=== PATIENT | female | born 1970 | race Hispanic/Latino ===

== ENCOUNTER → 2017-03-30 | Outpatient (CLI) | payer OTHER ==
--- NOTE | 2017-04-09 10:25 | Diagnostic Imaging Report ---
#[id number] - MGSCRNBI #BILATERAL DIGITAL SCREENING MAMMOGRAM WITH CAD: 03/30/2017 CLINICAL: Routine screening. Comparison is made to exam dated: 01/13/2016 mammogram - [facility]. Current study contains 4 films. The tissue of both breasts is heterogeneously dense. This may lower the sensitivity of mammography. Current study was also evaluated with a Computer Aided Detection (CAD) system. There is a benign intramammary node in the right breast. There also are benign calcifications in the left breast. No significant masses, calcifications, or other findings are seen in either breast. There has been no significant interval change. IMPRESSION: BENIGN There is no mammographic evidence of malignancy. A 1 year screening mammogram is recommended. The patient will be notified by letter of the results. Lucho martinez/megan:04/06/2017 12:23:03 Cook [place]chilada: Sharon CELESTE(Alma Delia)(M), [facility] letter sent: Compared to Prior B9 Mammogram BI-RADS: 2 Benign
== END ==
LOC: MAMMO 08:47
PROVIDERS: ATTEND Internal Medicine
DX: Z12.31 Encounter for screening mammogram for malignant neoplasm of breast (principal)

== ENCOUNTER 2017-06-01 16:33 | Emergency (ER) | payer OTHER ==
[~2017-06-01] VITALS: Ht 167.6 cm; Wt 81.6 kg
--- OUTSIDE RECORDS SUMMARY | 2017-06-01 16:35 | XMS REPORT ---
Author Author [facility] Address Unknown Phone Unavailable Care Team Providers Care Windows Software Engineer Name Role Phone AIDEN THIBODEAUX Unavailable Unavailable Problems This patient has no known problems. Allergies, Adverse Reactions, Alerts This patient has no known allergies or adverse reactions. Medications This patient has no known medications. Results Test Description Test Time Test Comments Text Results Atomic Results Result Comments MAMMOGRAM DIGITAL SCR BI [place] [address] Patient Name: ROSE MARIE ROME MR #: [id number] : 1970 Age/Sex: 46/F Req #: [id number] Adm Physician: Ordered by: AIDEN THIBODEAUX MD Report #: [id number] Location: MAMMO Room/Bed: Procedure: [id number] MG/MAMMOGRAM DIGITAL SCR BI Exam Date: 03/30/17 Exam Time: 0906 REPORT STATUS: Signed #[id number] - MGSCRNBI #BILATERAL DIGITAL SCREENING MAMMOGRAM WITH CAD: 03/30/2017 CLINICAL: Routine screening. Comparison is made to exam dated: 2015 mammogram - [facility]. Current study contains 4 films. The tissue of both breasts is heterogeneously dense. This may lower the sensitivity of mammography. Current study was also evaluated with a Computer Aided Detection (CAD) system. There is a benign intramammary node in the right breast. There also are benign calcifications in the left breast. No significant masses, calcifications, or other findings are seen in either breast. There has been no significant interval change. IMPRESSION: BENIGN There is no mammographic evidence of malignancy. A 1 year screening mammogram is recommended. The patient will be notified by letter of the results. Braden martinez/megan:04/06/2017 12:23:03 Skiff Operator: Sharon CELESTE(Alma Delia )(M), [facility] letter sent: Compared to Prior B9 Mammogram BI-RADS: 2 Benign Dictated By: BRADEN BERNAL DO 1223 Transcribed By: MEGAN on 1223 COPY TO: AIDEN THIBODEAUX MD
[2017-06-01 17:50] LABS: BASOPHILS # (AUTO) 0.1 (0.0-0.1); BASOPHILS % 0.6 % (0.0-1.0); EOSINOPHILS # (AUTO) 0.1 (0.0-0.4); EOSINOPHILS % 1.1 % (0.0-6.0); HEMATOCRIT 40.8 % (34.2-44.1); HEMOGLOBIN 13.8 g/dL (12.0-16.0); LYMPHOCYTES # (AUTO) 1.8 (1.0-3.2); LYMPHOCYTES % 20.2 % (18.0-39.1); MEAN CORPUSCULAR HEMOGLOBIN 28.6 pg (28-32); MEAN CORPUSCULAR HGB CONC 33.8 g/dL (31-35); MEAN CORPUSCULAR VOLUME 84.6 fL (81-99); MONOCYTES # (AUTO) 0.7 (0.2-0.8); MONOCYTES % 7.5 % (4.4-11.3); NEUTROPHILS # (AUTO) 6.1 (2.1-6.9); NEUTROPHILS % 69.5 % (38.7-80.0); PLATELET COUNT 268 x10e3/uL (140-360); RED BLOOD COUNT 4.82 x10e6/uL (3.6-5.1); RED CELL DISTRIBUTION WIDTH 12.7 % (11.7-14.4)
[2017-06-01 18:08] LABS: ALANINE AMINOTRANSFERASE 40 IU/L (0-55); ALBUMIN 3.8 g/dL (3.5-5.0); ALBUMIN/GLOBULIN RATIO 0.8 (0.8-2.0); ALKALINE PHOSPHATASE 93 IU/L (40-150); AMYLASE 64 U/L (25-125); ANION GAP 11.9 mmol/L (8-16); BLOOD UREA NITROGEN 12 mg/dL (7-26); BUN/CREATININE RATIO 15 (6-25); CALCIUM 9.4 mg/dL (8.4-10.2); CARBON DIOXIDE 26 mmol/L (22-29); CHLORIDE 102 mmol/L (98-107); CREATININE, SERUM 0.79 mg/dL (0.57-1.11); EST GLOMERULAR FILTRATION RATE > 60 ML/MIN (60-); GLUCOSE 104 mg/dL (74-118); LIPASE 24 U/L (8-78); POTASSIUM 3.9 mmol/L (3.5-5.1); SODIUM 136 mmol/L (136-145)
[2017-06-01 18:11] LABS: CLARITY,URINE CLEAR (CLEAR); COLOR,URINE STRAW (YELLOW); LEUKOCYTE ESTERASE ,URINE NEGATIVE (NEGATIVE)
[2017-06-01 18:12] LABS: BILIRUBIN,URINE NEGATIVE (NEGATIVE); KETONES,URINE NEGATIVE (NEGATIVE); NITRITE,URINE NEGATIVE (NEGATIVE); PREGNANCY TEST, URINE NEGATIVE (NEGATIVE); PROTEIN,URINE DIPSTICK NEGATIVE (NEGATIVE); URINE UROBILINOGEN 0.2 mg/dL (0.2 - 1)
[2017-06-01 18:23] LABS: EPITHELIAL CELLS,URINE MODERATE /LPF; RBC,URINE 0-5 /HPF (0-5); WBC,URINE (MAN) 0-5 /HPF (0-5)
--- NOTE | 2017-06-01 22:32 | Diagnostic Imaging Report ---
EXAM: CT Abdomen and Pelvis WITH contrast INDICATION: Acute appendicitis. COMPARISON: None. TECHNIQUE: Abdomen and pelvis were scanned utilizing a multidetector helical scanner from the lung base to the pubic symphysis after administration of IV contrast. Coronal and sagittal reformations were obtained. Routine protocol was performed. Scan was performed when during portal venous phase. IV CONTRAST: 100 mL of Isovue-300 ORAL CONTRAST: None RADIATION DOSE: Total DLP: 506.61 mGy*cm Estimated effective dose: (DLP x 0.015 x size factor) mSv COMPLICATIONS: None FINDINGS: LINES and TUBES: None. LOWER THORAX: Unremarkable HEPATOBILIARY: No focal hepatic lesions. No biliary ductal dilation. GALLBLADDER: No radio-opaque stones or sludge. No wall thickening. SPLEEN: No splenomegaly. PANCREAS: No focal masses or ductal dilatation. ADRENALS: No adrenal nodules KIDNEYS/URETERS: Kidneys enhance symmetrically. No hydronephrosis. No cystic or solid mass lesions. No stones. GI TRACT: No abnormal distention, wall thickening, or evidence of bowel obstruction. Appendix is normal. PELVIC ORGANS/BLADDER: Unremarkable. LYMPH NODES: No lymphadenopathy. VESSELS: Unremarkable. PERITONEUM / RETROPERITONEUM: No free air or fluid. BONES: Unremarkable. SOFT TISSUES: Unremarkable. IMPRESSION: 1. No evidence of acute intra-abdominal abnormality. No evidence of acute appendicitis. 2. No tomographic findings to explain patient's abdominal pain. Signed by: Dr. Steven Weaver M.D. on 06/01/2017 10:28 PM
[2017-06-01 22:39] VITALS: BP 167/83
[2017-06-02] MEDS ORDERED: SODIUM CHLORIDE 0.9% 50ML 50 ML ONE (06:53)
[2017-06-02] MEDS ORDERED: IOPAMIDOL 370 MG/ML 200 ML INFUS..BTL INJ ONE (06:53)
== END 2017-06-01 22:43 | disposition home or self-care (01) ==
LOC: ER 16:33
DX: R10.31 Right lower quadrant pain (principal); R10.32 Left lower quadrant pain; R11.0 Nausea; I10 Essential (primary) hypertension
CPT/HCPCS: 36415; 74177; 80053; 81001; 81025; 82150; 83690; 85025; 99284

== ENCOUNTER 2017-07-21 02:45 | Emergency (ER) | payer OTHER ==
[~2017-07-21] VITALS: Ht 167.6 cm; Wt 81.6 kg
== END 2017-07-21 03:05 | disposition home or self-care (01) ==
LOC: ER 02:45
DX: S46.012A Strain of muscle(s) and tendon(s) of the rotator cuff of left shoulder, initial encounter (principal); S46.812A Strain of other muscles, fascia and tendons at shoulder and upper arm level, left arm, initial encounter; I10 Essential (primary) hypertension
CPT/HCPCS: 93005; 99282

== ENCOUNTER → 2017-11-30 | Day surgery (SDC) | payer OTHER ==
[2017-11-23 11:15] LABS: BASOPHILS # (AUTO) 0.1 (0.0-0.1); EOSINOPHILS # (AUTO) 0.1 (0.0-0.4); EOSINOPHILS % 1.6 % (0.0-6.0); HEMOGLOBIN 14.6 g/dL (12.0-16.0); LYMPHOCYTES # (AUTO) 2.2 (1.0-3.2); LYMPHOCYTES % 31.2 % (18.0-39.1); MEAN CORPUSCULAR HEMOGLOBIN 28.7 pg (28-32); MEAN CORPUSCULAR HGB CONC 32.4 g/dL (31-35); MEAN CORPUSCULAR VOLUME 88.4 fL (81-99); MONOCYTES # (AUTO) 0.7 (0.2-0.8); NEUTROPHILS # (AUTO) 3.9 (2.1-6.9); NEUTROPHILS % 56.1 % (38.7-80.0); PLATELET COUNT 280 x10e3/uL (140-360); RED BLOOD COUNT 5.09 x10e6/uL (3.6-5.1); RED CELL DISTRIBUTION WIDTH 12.4 % (11.7-14.4)
[2017-11-23 11:22] LABS: BILIRUBIN,URINE NEGATIVE (NEGATIVE); CLARITY,URINE CLEAR (CLEAR); COLOR,URINE COLORLESS (YELLOW); KETONES,URINE NEGATIVE (NEGATIVE); LEUKOCYTE ESTERASE ,URINE NEGATIVE (NEGATIVE); NITRITE,URINE NEGATIVE (NEGATIVE); PROTEIN,URINE DIPSTICK NEGATIVE (NEGATIVE); URINE UROBILINOGEN 0.2 mg/dL (0.2 - 1)
[2017-11-23 11:30] LABS: ALANINE AMINOTRANSFERASE 28 IU/L (0-55); ALBUMIN 4.5 g/dL (3.5-5.0); ALBUMIN/GLOBULIN RATIO 1.2 (0.8-2.0); ALKALINE PHOSPHATASE 102 IU/L (40-150); ANION GAP 16.1 mmol/L (8-16); BLOOD UREA NITROGEN 12 mg/dL (7-26); BUN/CREATININE RATIO 15 (6-25); CARBON DIOXIDE 26 mmol/L (22-29); CHLORIDE 106 mmol/L (98-107); CREATININE, SERUM 0.81 mg/dL (0.57-1.11); EST GLOMERULAR FILTRATION RATE > 60 ML/MIN (60-); GLUCOSE 96 mg/dL (74-118); POTASSIUM 5.1 mmol/L (3.5-5.1); SODIUM 143 mmol/L (136-145)
[~2017-11-30] MED LIST: AMLODIPINE BESYL5 MG PO; BESYLATE; BUPIVACAINE 0.25%/EPI 30ML SDV INJ ONE; FENTANYL CITRATE/PF 100MCG/2 ML INJ ONE; GLYCOPYRROLATE INJ 1MG/ 5 ML SYR ONE; HYDROCODONE/APAP 7.5MG-325MG 1 EA TAB ONE; KETOROLAC TROMETHAMINE 30 MG/ML VIAL ONE; LIDOCAINE HCL 2% LOCAL INJ 5 ML SDV VIAL INJ ONE; METOCLOPRAMIDE HCL 10 MG/2ML VIAL ONE; MIDAZOLAM HCL 2 MG/2 ML VIAL ONE; NEOSTIGMINE 5 MG/5ML SYR ONE; ONDANSETRON HCL INJ 2 MG/ML VIAL ONE; PHENYLEPHRINE HCL 1% 10 MG/ML VIAL ONE; PROPOFOL IV EMULSION 10 MG/ML 20 ML VIAL ONE; ROCURONIUM BROMIDE 10 MG/ML 5ML VIAL ONE; SEVOFLURANE INHAL SOLN 250 ML PEN BTL ONE
--- NOTE | 2017-11-30 10:10 | Operative Report ---
DATE OF PROCEDURE: November 30, 2017 PREOPERATIVE DIAGNOSIS: Cholecystitis and cholelithiasis. POSTOPERATIVE DIAGNOSIS: Cholecystitis and cholelithiasis. OPERATION PERFORMED: Laparoscopic cholecystectomy. ANESTHESIA: General. COMPLICATIONS: None. ESTIMATED BLOOD LOSS: Minimal. DESCRIPTION OF PROCEDURE: With the patient lying in bed in the supine position, under good general endotracheal anesthesia, the abdomen was prepped with Betadine solution and draped in the usual manner. A Veress needle was introduced into the umbilicus, and pneumoperitoneum was established without any difficulty. An 11-mm trocar was placed into the umbilicus, and a 10-mm video laparoscope was placed into the intraabdominal cavity. Under direct vision, three 5-mm trocars were placed in the right subcostal region. Video laparoscopy then revealed the patient to have some adhesions to the lower half of the gallbladder. The rest of the abdominal exploration was otherwise within normal limits. The adhesions to the gallbladder were then slowly and carefully taken down. Peritoneum overlying the neck of the gallbladder was then opened, and the cystic duct was identified. The cystic duct was followed to its junction with the common duct. Cystic duct was then circumferentially dissected away from the common duct, doubly clipped and divided. Cystic artery was similarly doubly clipped and divided. Gallbladder was then slowly and carefully taken off the liver bed using the cautery scissors, and perfect hemostasis was ascertained. The gallbladder was then grasped through the umbilical port and removed without any difficulty. Video laparoscopy was then again carried out. The liver bed was found to be perfectly dry. All of the excess fluid was aspirated. The pneumoperitoneum was evacuated, and all the trocars were removed under direct vision. The midline fascia at the umbilicus was then closed with a [id number]-jq-moyxs of #0 Vicryl. All layers were infiltrated on the way out with a solution of 1/4 percent Marcaine. Subcutaneous tissue was approximated with 3-0 Vicryl, and the skin was closed with subcuticular 5-0 Vicryl. Benzoin, Steri-Strips and Band-Aids were applied. The sponge, lap and needle count was correct. The patient tolerated the procedure well and returned to the recovery room in stable condition. Job#: [id number]
[2017-11-30 11:00] VITALS: BP 123/74
== END | disposition home or self-care (01) ==
LOC: OR 05:45
PROVIDERS: ATTEND Surgery
DX: K80.10 Calculus of gallbladder with chronic cholecystitis without obstruction (principal); K82.8 Other specified diseases of gallbladder; I10 Essential (primary) hypertension; M54.2 Cervicalgia; M54.9 Dorsalgia, unspecified; M26.609 Unspecified temporomandibular joint disorder, unspecified side; I83.90 Asymptomatic varicose veins of unspecified lower extremity; K21.9 Gastro-esophageal reflux disease without esophagitis; Z88.1 Allergy status to other antibiotic agents; Z88.8 Allergy status to other drugs, medicaments and biological substances; Z01.810 Encounter for preprocedural cardiovascular examination; Z01.812 Encounter for preprocedural laboratory examination
CPT/HCPCS: 36415; 47562; 80053; 81003; 81025; 85025; 88304; 93005; C1766; J1885; J2001; J2250; J2370; J2405; J2704; J2765; J3490

== ENCOUNTER 2018-07-11 19:26 | Observation (INO) | payer OTHER ==
[~2018-07-11] VITALS: Ht 153.7 cm; Wt 31.8 kg
[~2018-07-11 19:26] MED LIST changes: -BUPIVACAINE 0.25%/EPI 30ML SDV INJ ONE; -FENTANYL CITRATE/PF 100MCG/2 ML INJ ONE; -GLYCOPYRROLATE INJ 1MG/ 5 ML SYR ONE; -HYDROCODONE/APAP 7.5MG-325MG 1 EA TAB ONE; -KETOROLAC TROMETHAMINE 30 MG/ML VIAL ONE; -LIDOCAINE HCL 2% LOCAL INJ 5 ML SDV VIAL INJ ONE; -METOCLOPRAMIDE HCL 10 MG/2ML VIAL ONE; -MIDAZOLAM HCL 2 MG/2 ML VIAL ONE; -NEOSTIGMINE 5 MG/5ML SYR ONE; -ONDANSETRON HCL INJ 2 MG/ML VIAL ONE; -PHENYLEPHRINE HCL 1% 10 MG/ML VIAL ONE; -PROPOFOL IV EMULSION 10 MG/ML 20 ML VIAL ONE; -ROCURONIUM BROMIDE 10 MG/ML 5ML VIAL ONE; -SEVOFLURANE INHAL SOLN 250 ML PEN BTL ONE
[2018-07-11 20:00] VITALS: BP 138/78
--- NOTE | 2018-07-11 20:26 | NUR ---
SPOKE TO DR. CANTU AT THIS TIME. NEW ORDERS RCV.
[2018-07-11] MEDS ORDERED: HYDRALAZINE HCL 20 MG/ML VIAL IV PRN (20:30)
[2018-07-11] MEDS ORDERED: ONDANSETRON HCL INJ 2MG/ML 2ML 2 MG/ML VIAL IV PRN (20:30)
[2018-07-11] MEDS ORDERED: HYDROCODONE/APAP 5MG-325MG TAB PO PRN (20:30)
[2018-07-11] MEDS ORDERED: MORPHINE SULFATE INJ 4 MG/ML INJ 1ML IV PRN (20:30)
[2018-07-11] MEDS ORDERED: ACETAMINOPHEN 325 MG TAB PO PRN (20:30)
[2018-07-11] MEDS: SODIUM CHLORIDE 0.9% 1000ML 1,000 ML IV SCH (21:35)
[2018-07-12] VITALS (8 sets, daily range): BP systolic 111–132; BP diastolic 65–75
[2018-07-12 02:35] LABS: BASOPHILS % 0.1 % (0.0-1.0); EOSINOPHILS # (AUTO) 0.1 (0.0-0.4); EOSINOPHILS % 0.7 % (0.0-6.0); HEMOGLOBIN 13.3 g/dL (12.0-16.0); LYMPHOCYTES # (AUTO) 0.9 (1.0-3.2); LYMPHOCYTES % 11.8 % (18.0-39.1); MEAN CORPUSCULAR HGB CONC 34.1 g/dL (31-35); MONOCYTES # (AUTO) 0.7 (0.2-0.8); NEUTROPHILS # (AUTO) 5.6 (2.1-6.9); NEUTROPHILS % 78.1 % (38.7-80.0); PLATELET COUNT 216 x10e3/uL (140-360); RED BLOOD COUNT 4.59 x10e6/uL (3.6-5.1); RED CELL DISTRIBUTION WIDTH 13.3 % (11.7-14.4)
[2018-07-12 02:59] LABS: ALANINE AMINOTRANSFERASE 261 IU/L (0-55); ALBUMIN 3.4 g/dL (3.5-5.0); ALBUMIN/GLOBULIN RATIO 0.9 (0.8-2.0); ALKALINE PHOSPHATASE 293 IU/L (40-150); ANION GAP 10.5 mmol/L (8-16); BLOOD UREA NITROGEN 6 mg/dL (7-26); BUN/CREATININE RATIO 9 (6-25); CALCIUM 8.2 mg/dL (8.4-10.2); CARBON DIOXIDE 23 mmol/L (22-29); CHLORIDE 106 mmol/L (98-107); CREATININE, SERUM 0.66 mg/dL (0.57-1.11); EST GLOMERULAR FILTRATION RATE > 60 ML/MIN (60-); GLUCOSE 99 mg/dL (74-118); LIPASE 17 U/L (8-78); POTASSIUM 3.5 mmol/L (3.5-5.1); SODIUM 136 mmol/L (136-145)
--- NOTE | 2018-07-12 07:00 | NUR ---
BEDSIDE ROUNDS COMPLETE NO DISTRESS NOTED, UPDATED ON POC VOICED UNDERSTANDING, DENIES PAIN AT THIS TIME, IVF INFUSING TO R AC 18G NO SS OF INFILTRATION NOTED, NO OTHER CO VOICED CALL LIGHT IN REACH WILL CONTINUE OT MONITOR
[2018-07-12] MEDS: AMLODIPINE BESYLATE 5 MG TAB PO SCH (08:10)
[2018-07-12] MEDS: SODIUM CHLORIDE 0.9% 1000ML 1,000 ML IV SCH ×2 (08:10→20:05)
[2018-07-12] MEDS ORDERED: METOCLOPRAMIDE HCL 10 MG/2ML VIAL ONE (09:08)
[2018-07-12] MEDS ORDERED: METOCLOPRAMIDE HCL 10 MG/2ML VIAL IV ONE (10:00)
[2018-07-12] MEDS ORDERED: PROPOFOL IV EMULSION 10 MG/ML 50 ML VIAL ONE (14:40)
[2018-07-12] MEDS ORDERED: FENTANYL CITRATE/PF 100MCG/2 ML INJ ONE (14:43)
[2018-07-12] MEDS ORDERED: MIDAZOLAM HCL 2 MG/2 ML VIAL ONE (14:43)
--- NOTE | 2018-07-12 14:52 | Diagnostic Imaging Report ---
EXAMINATION: Right upper quadrant ultrasound CLINICAL INDICATION: Abdominal pain COMPARISON: None DISCUSSION: Transverse and longitudinal images of the right upper quadrant were obtained. The liver is normal in size measuring 12.7centimeters in length in the right midclavicular line and shows normal echogenicity. No focal masses are seen in the liver. There is no intrahepatic biliary dilatation. The common bile duct is normal in caliber and measures 0.6 cm. The main portal vein is normal in caliber and measures 1 cm with normal hepatopetal flow. Cholecystectomy. The visualized portions of the pancreatic body are unremarkable. The right kidney measures 10.2 centimeters in length. There is normal renal cortical echogenicity and no hydronephrosis, mass or shadowing calculi. The visualized portions of the great vessels are normal. No free fluid is seen. IMPRESSION: Cholecystectomy. Normal appearance of the liver. Signed by: Dr. Rahul Velez M.D. on 07/12/2018 2:49 PM
--- NOTE | 2018-07-12 16:53 | History and Physical ---
CHIEF COMPLAINT: Abdominal pain, nausea, vomiting, diarrhea. HISTORY OF PRESENT ILLNESS: A 47-year-old female with past medical history of hypertension, comes in from an outside ER with complaints of abdominal pain epigastrically, nausea, vomiting ongoing for the last several days. The patient was seen by her primary care physician yesterday, due to the extremely excruciating pain was sent to local ER to be further evaluated. While there, the patient had imaging studies with a CT of her abdomen and pelvis performed. The patient has been having decreased oral intake, dehydrated, nausea, vomiting, and was sent here to [facility] for further management and care. The patient was seen and evaluated at bedside on the medical floor, currently is doing well with no other issues at this time. Vital signs stable during my evaluation. REVIEW OF SYSTEMS: Pertinent positives: Abdominal pain, nausea, vomiting, diarrhea, dehydration. Pertinent negatives: Denies any chest pain, palpitation, dysuria, hematuria, frequency, urgency, lightheadedness, dizziness, cough, congestion, fever, or any other complaints. The rest of 14-point review of systems have been reviewed with the patient and are negative. ALLERGIES: STEROID CREAM, SULFAMETHOXAZOLE/TRIMETHOPRIM. HOME MEDICATIONS: Norvasc 5 mg daily. PAST SURGICAL HISTORY: Reports none. FAMILY HISTORY: Hypertension and diabetes. SOCIAL HISTORY: No drugs. No alcohol. Does not smoke. Good social support. She is and has children. PHYSICAL EXAMINATION: VITAL SIGNS: Temperature is 99.4, pulse 88, respiratory rate is 18, blood pressure 120/74, and pulse ox is 96% to 98% on room air. GENERAL: Not in acute distress. Alert and oriented x3. Cooperative on examination. HEENT: Head is normocephalic and atraumatic. Eyes; pupils are equal, round, and reactive to light bilaterally. Extraocular movements are intact bilaterally. Throat, no evidence of erythema or exudates in the posterior pharynx. Has poor dentition. NECK: Supple. Good range of motion. PULMONARY: Clear to auscultation bilaterally. No wheezing, no rales, no rhonchi, no crackles appreciated. CARDIOVASCULAR: Positive S1, S2. No murmurs, rubs, or gallops appreciated. ABDOMEN: Soft, nondistended, and nontender to palpation. Bowel sounds present. MUSCULOSKELETAL: Strength is 5/5 throughout. No evidence of any muscle deficits on examination. No weakness appreciated. NEUROLOGICAL: Cranial nerves 2 through 12 grossly intact. No evidence of any neurological deficits on exam. SKIN: Intact. Warm to touch. Good cap refill. PSYCHIATRIC: Normal affect and mood. EXTREMITIES: No edema. Good range of motion throughout. LAB FINDINGS: Show white count 7.3, hemoglobin, hematocrit 39, and platelets of 216. Chemistry; sodium 133, potassium 3.5, chloride 107, bicarb 23, anion gap of 10, BUN 6, creatinine of 0.66, glucose 99, calcium 8.2. Total bilirubin was 1.1, AST 291, ALT 261, alkaline phosphatase 293. Troponins were negative. Total protein 7.0, albumin 2.4, lipase is 17. IMAGING STUDIES: She does have the outside CT abdomen and pelvis that showed diffusely fluid-filled normal caliber small loop bowels, which may be seen in the setting of nonspecific enteritis. Mild intra and extrahepatic biliary ductal dilatation, slightly more than expected for post cholecystectomy. There is concern for biliary obstruction process, consider correlation with liver function tests. There was a 5.4 cm low-attenuation left adnexal cyst. Needs outpatient followup with her PCP and repeat pelvic ultrasound as an outpatient. IMPRESSION: 1. Epigastric abdominal pain with associated nausea and vomiting. 2. Dehydration. 3. Hypotension. 4. Decreased oral intake. 5. Elevated transaminases. PLAN: At this time, it seems like she has epigastric abdominal pain. She is scheduled to have an EGD scheduled later today. The LFTs, I am not sure what the cause of that. I will go ahead and order right upper quadrant ultrasound to look for any kind of dilatation. There is report that she does not have a gallbladder. She is on Protonix for now and antinausea medications. Continue with n.p.o., IV fluids for EGD later today. Get a.m. labs. Follow GI recommendations. The patient is otherwise stable, her vital signs were stable when I evaluated her. Hopefully, after the procedure, she will have liquid diet advanced as tolerated. If her LFTs are normal and GI has cleared her, she could probably be discharged home tomorrow. MD GANESH Miles/MODSybil /[id number]
[2018-07-12] MEDS ORDERED: PANTOPRAZOLE 40 MG 10ML VIAL IV NR (17:00)
--- NOTE | 2018-07-12 19:08 | NUR ---
WALKING ROUNDS PERFORMED, RECEIVED PT LAYING SEMI FOWLERS IN BED, AAOX3, RR EVEN AND NON-LABORED, ON RA. NO S/SX OF DISTRESS NOTED. LEFT PT LAYING SEMI FOWLERS IN BED,BED IN LOW LOCKED POSITION, SIDE RAILS UPX2, CALL LIGHT AND PHONE WITHIN REACH.
--- NOTE | 2018-07-12 23:44 | Operative Report ---
DATE OF PROCEDURE: 07/12/2018 SURGEON: Van Restrepo MD PROCEDURE: EGD with biopsies. INDICATIONS FOR EGD: Upper abdominal pain, nausea, and vomiting. MEDICATION: The patient was done under MAC, please see anesthesiologist's note. PROCEDURE IN DETAIL: With the patient in left lateral decubitus position, the flexible fiberoptic Olympus gastroscope was introduced into the esophagus under direct visualization without any difficulty. There was some patchy erythema noted in distal esophagus. The scope was then advanced with ease into the stomach. Mucosa overlying the antrum and the body revealed some patchy intense erythema and jhws-ls-laaflkri edema and biopsies were obtained sent to stain for Helicobacter pylori. The pylorus was intubated with ease and the scope was advanced all the way to the second portion of the duodenum. Biopsies were obtained from the second portion and the duodenal bulb to rule out sprue. The scope was then withdrawn back into the stomach and retroflexed and mucosa overlying the fundus and cardia appeared to be within normal limits. The scope was then straightened out, it was subsequently withdrawn. The patient tolerated procedure well. IMPRESSION: 1. Distal esophagitis, mild. 2. Gastritis, biopsied. Biopsies sent to stain for Helicobacter pylori. 3. Rule out sprue. PLAN: Follow up histology. Initiate Protonix 40 mg one p.o. q.a.m. a.c. Advanced diet to full liquids. Van Restrepo MD [facility] [place] [place] /[id number] cc: Alfredo Montanez MD
[2018-07-13] VITALS (8 sets, daily range): BP systolic 105–128; BP diastolic 58–80
[2018-07-13] MEDS: SODIUM CHLORIDE 0.9% 1000ML 1,000 ML IV SCH ×3 (04:08→17:22)
[2018-07-13 05:21] LABS: BASOPHILS % 0.4 % (0.0-1.0); EOSINOPHILS # (AUTO) 0.2 (0.0-0.4); EOSINOPHILS % 3.2 % (0.0-6.0); HEMATOCRIT 37.9 % (34.2-44.1); HEMOGLOBIN 12.5 g/dL (12.0-16.0); LYMPHOCYTES # (AUTO) 1.6 (1.0-3.2); LYMPHOCYTES % 35.1 % (18.0-39.1); MEAN CORPUSCULAR HEMOGLOBIN 28.9 pg (28-32); MEAN CORPUSCULAR VOLUME 87.7 fL (81-99); MONOCYTES # (AUTO) 0.5 (0.2-0.8); MONOCYTES % 11.6 % (4.4-11.3); NEUTROPHILS # (AUTO) 2.3 (2.1-6.9); NEUTROPHILS % 49.5 % (38.7-80.0); PLATELET COUNT 206 x10e3/uL (140-360); RED BLOOD COUNT 4.32 x10e6/uL (3.6-5.1); RED CELL DISTRIBUTION WIDTH 13.4 % (11.7-14.4)
[2018-07-13 05:44] LABS: ALANINE AMINOTRANSFERASE 190 IU/L (0-55); ALBUMIN 3.3 g/dL (3.5-5.0); ALKALINE PHOSPHATASE 262 IU/L (40-150); ANION GAP 10.3 mmol/L (8-16); BLOOD UREA NITROGEN 5 mg/dL (7-26); BUN/CREATININE RATIO 7 (6-25); CALCIUM 8.4 mg/dL (8.4-10.2); CARBON DIOXIDE 24 mmol/L (22-29); CHLORIDE 108 mmol/L (98-107); CREATININE, SERUM 0.69 mg/dL (0.57-1.11); EST GLOMERULAR FILTRATION RATE > 60 ML/MIN (60-); GLUCOSE 77 mg/dL (74-118); POTASSIUM 3.3 mmol/L (3.5-5.1); SODIUM 139 mmol/L (136-145)
[2018-07-13] MEDS: PANTOPRAZOLE 40 MG 10ML VIAL IV SCH ×2 (06:02→17:22)
--- NOTE | 2018-07-13 07:10 | NUR ---
BEDSIDE ROUNDS COMPLETE, PT RECEIVED IN SUPINE POSITION NO DISTRESS NOTED, IVF INFUSING TO R AC 18G NO SS OF INFILTRATION NOTED, NO OTHER CO VOICED DENIES PAIN AT THIS TIME, CALL LIGHT IN REACH WILL CONTINUE OT MONITOR
[2018-07-13] MEDS: AMLODIPINE BESYLATE 5 MG TAB PO SCH (08:23)
[2018-07-13] MEDS ORDERED: POTASSIUM CHLORIDE 20 MEQ TAB CR PO NR (12:15)
--- NOTE | 2018-07-13 16:12 | Progress Note ---
DATE: 07/13/2018 Medicine Progress Note SUBJECTIVE: The patient is doing well today with no complaints. Status post EGD yesterday, showed esophagitis with gastritis. Multiple biopsies were performed. She is on a full liquid diet now, wants to advance this to solid food. She may be able to be discharged later today if cleared by GI. OBJECTIVE: VITAL SIGNS: Temperature is 97.3, pulse 76, respiratory rate is 18, blood pressure 120/62, pulse ox 100% on room air. GENERAL: Not in acute distress. Alert and oriented x3. Cooperative on examination. HEENT: Head is normocephalic, atraumatic. Eyes; pupils equal, round, reactive to light bilaterally. Extraocular movements intact bilaterally. Throat, no evidence of erythema or exudates in the posterior pharynx. Has poor dentition NECK: Supple. Good range of motion. PULMONARY: Clear to auscultation bilaterally. No wheezing. No rales. No rhonchi. No crackles appreciated. CARDIOVASCULAR: Positive S1, S2. No murmurs, rubs, or gallops appreciated. ABDOMEN: Soft, nondistended, and nontender to palpation. Bowel sounds present. MUSCULOSKELETAL: Strength is 5/5 throughout. No evidence of any muscle deficits on examination. No weakness appreciated. NEUROLOGICAL: Cranial nerves II through XII grossly intact. No evidence of any neurological deficits on exam. SKIN: Intact. Warm to touch. Good cap refill. PSYCHIATRIC: Normal affect and mood. EXTREMITIES: No edema. Good range of motion throughout. LABORATORY DATA: Lab findings show white count 4.6, hemoglobin 12.5, hematocrit 37.9, platelets of 206. Chemistry; sodium 139, potassium 3.3, chloride 108, bicarb 24, anion gap of 10, BUN is 5, creatinine 0.69. AST 104, ALT 190, alkaline phosphatase 262. Troponins are all negative. Lipase of 17. MICROBIOLOGY: None. IMAGING STUDIES: Liver ultrasound showed abnormal appearance of the liver. IMPRESSION: 1. Epigastric abdominal pain, status post esophagogastroduodenoscopy that showed gastritis and esophagitis. 2. Nausea and vomiting, resolved. 3. Dehydration, resolved. 4. Elevated transaminases, now down trending. PLAN: At this time, continue with Protonix. She is on a full liquid diet, advance diet per GI. Right upper quadrant ultrasound was found to be normal. Her labs seemed to be much improved. From my standpoint, if she is cleared by GI, she can go home. We will follow up as an outpatient on the biopsy reports. She will go home on Carafate and Protonix with outpatient followup with GI. We will await final recommendations by GI. The patient is eager to go home today. MD GANESH Miles/CLAY /[id number]
--- NOTE | 2018-07-13 19:11 | NUR ---
WALKING ROUNDS PERFORMED, RECEIVED PT SITTING ON COUCH IN ROOM, AAOX3, RR EVEN AND NON-LABORED, ON RA. NO S/SX OF DISTRESS NOTED. LEFT PT SITTING ON COUCH WITH CALL LIGHT WITHIN REACH. FAMILY AT SIDE.
[2018-07-14] VITALS (7 sets, daily range): BP systolic 108–133; BP diastolic 63–78
[2018-07-14] MEDS: SODIUM CHLORIDE 0.9% 1000ML 1,000 ML IV SCH (04:00)
[2018-07-14 05:47] LABS: BASOPHILS % 0.6 % (0.0-1.0); EOSINOPHILS # (AUTO) 0.2 (0.0-0.4); EOSINOPHILS % 3.8 % (0.0-6.0); HEMATOCRIT 38.4 % (34.2-44.1); HEMOGLOBIN 12.6 g/dL (12.0-16.0); LYMPHOCYTES # (AUTO) 1.8 (1.0-3.2); LYMPHOCYTES % 35.3 % (18.0-39.1); MEAN CORPUSCULAR HEMOGLOBIN 28.5 pg (28-32); MEAN CORPUSCULAR HGB CONC 32.8 g/dL (31-35); MEAN CORPUSCULAR VOLUME 86.9 fL (81-99); MONOCYTES # (AUTO) 0.5 (0.2-0.8); MONOCYTES % 9.6 % (4.4-11.3); NEUTROPHILS # (AUTO) 2.5 (2.1-6.9); NEUTROPHILS % 50.3 % (38.7-80.0); PLATELET COUNT 213 x10e3/uL (140-360); RED BLOOD COUNT 4.42 x10e6/uL (3.6-5.1); RED CELL DISTRIBUTION WIDTH 13.3 % (11.7-14.4)
[2018-07-14] MEDS: PANTOPRAZOLE 40 MG 10ML VIAL IV SCH ×2 (06:02→16:20)
[2018-07-14 06:03] LABS: ANION GAP 9.6 mmol/L (8-16); BLOOD UREA NITROGEN 5 mg/dL (7-26); BUN/CREATININE RATIO 7 (6-25); CALCIUM 8.9 mg/dL (8.4-10.2); CARBON DIOXIDE 25 mmol/L (22-29); CHLORIDE 109 mmol/L (98-107); CREATININE, SERUM 0.69 mg/dL (0.57-1.11); EST GLOMERULAR FILTRATION RATE > 60 ML/MIN (60-); GLUCOSE 83 mg/dL (74-118); POTASSIUM 3.6 mmol/L (3.5-5.1); SODIUM 140 mmol/L (136-145)
[2018-07-14] MEDS: AMLODIPINE BESYLATE 5 MG TAB PO SCH (08:31)
--- NOTE | 2018-07-14 11:59 | NUR ---
VINCENT SPOKE W BEDSIDE RN. STATES THE PT'S DC IS DELAYED BECAUSE THE MRCP MACHINE IS NOT WORKING. GI SCHEDULED FOR 07/15/2018.
[2018-07-14] MEDS ORDERED: GADOBENATE DIMEGLUMINE 0 ML IV ONE (12:20)
[2018-07-14] MEDS ORDERED: GADOBENATE DIMEGLUMINE 1 ML IV ONE (12:55)
--- NOTE | 2018-07-14 14:05 | NUR ---
Visit made by the Spiritual Care Department Pastoral Visitor, Prema Brunner. PV provided pastoral presence, prayer, communion, hospitality, and supportive listening. Pastoral Visitor informed pt/family of the scope of [employer] and availability. ZIYAD [employer] Spiritual Care Department O: [phone] Pager: [phone] ([phone] number calling from)
--- NOTE | 2018-07-14 14:37 | Progress Note ---
DATE: 07/14/2018 SUBJECTIVE: The patient is scheduled to have an MRCP, but the machine is down and is not working currently at the moment. Once the MRI machine is working and functional, we will have an MRCP recommended by GI. She is currently tolerating diet well with no complaints. We will stop IV fluids. PHYSICAL EXAMINATION: VITAL SIGNS: Temperature 96.5, pulse 76, respiratory rate is 20, blood pressure is 111/63, and pulse ox 98% on room air. GENERAL: No acute distress, alert, oriented x3. Cooperative on examination. HEENT: Head, normocephalic and atraumatic. Eyes; pupils are equal, round, and reactive to light bilaterally. Extraocular movements are intact bilaterally. Throat, no evidence of erythema or exudates in the posterior pharynx. Has poor dentition NECK: Supple. Good range of motion throughout. PULMONARY: Clear to auscultation bilaterally. No wheezing, no rales, no rhonchi, no crackles appreciated. CARDIOVASCULAR: Positive S1 and S2. No murmurs, rubs, or gallops appreciated. ABDOMEN: Soft, nondistended, and nontender to palpation. Bowel sounds present. MUSCULOSKELETAL: Strength is 5/5 throughout. No evidence of any muscle deficits on examination. No weakness appreciated. NEUROLOGICAL: Cranial nerves II through XII grossly intact. No evidence of any neurological deficits on exam. SKIN: Intact. Warm to touch. Good cap refill. PSYCHIATRIC: Normal affect and mood. EXTREMITIES: No edema. Good range of motion throughout. LAB FINDINGS: White count 5, hemoglobin 12, hematocrit of 38, platelets of 213. Chemistry; sodium 140, potassium 3.6, chloride 109, bicarb 25, anion gap of 9.6, creatinine is 0.69. Lipase was normal. MICROBIOLOGY: None. IMAGING STUDIES: None. IMPRESSION AND PLAN: 1. Epigastric abdominal pain status post EGD that showed gastritis and esophagitis. 2. Nausea and vomiting, resolved. 3. Dehydration, resolved. 4. Elevated transaminases. At this time, continue with Protonix and Carafate. She is on a regular diet now. She is tolerating well. Continue with pain control. Stop IV fluids. We are awaiting for MRCP, but currently the machine is not functional at this time. Once the MRI machine is working, we will get MRCP recommended by GI. If negative, the patient can be discharged home. She will be discharged on Carafate and Protonix. We will get final recommendations by GI prior to being discharged. MD GANESH Miles/MODL /[id number]
--- NOTE | 2018-07-14 19:10 | NUR ---
WALKING ROUNDS PERFORMED. RECEIVED PT LAYING IN BED, AAOX3, RR EVEN AND NON-LABORED, ON RA. NO S/SX OF DISTRESS NOTED. CALL LIGHT WITHIN REACH. INSTRUCT TO CALL FOR ASSISTANCE. FAMILY AT SIDE. BED LOW/LOCKED. CONTINUE TO MONITOR CLOSELY
--- NOTE | 2018-07-14 19:20 | NUR ---
Report given to oncoming nurse of patient's status. No s/s of acute distress noted. Family at bedside.
--- NOTE | 2018-07-14 23:43 | Diagnostic Imaging Report ---
EXAM: MRI MRCP O DATE: 07/14/2018 8:00 AM INDICATION: Elevated liver enzymes and vomiting COMPARISON: Right upper quadrant ultrasound dated 07/12/[address] dated 06/01/2017 TECHNIQUE: Multiplanar multisequential MRI images of the abdomen were obtained before and after administration of 15 cc of MultiHance, using MRCP protocol. FINDINGS: No focal hepatic lesions. Gallbladder is surgically absent. Common bile duct is distended up to 1.1 cm, likely due to postcholecystectomy reservoir effect. No filling defects visualized. Spleen, pancreas, adrenal glands, and kidneys are unremarkable. No hydronephrosis. Tiny left renal superior pole cyst. No pancreatic ductal dilatation. No upper abdominal lymphadenopathy. Visualized bowel loops are unremarkable. No evidence of bowel obstruction. IMPRESSION: Status post cholecystectomy with mild common bile duct dilatation, likely due to reservoir effect. No choledocholithiasis. No focal hepatic lesion. Signed by: Dr. Lukas Salgado MD on 07/14/2018 11:39 PM
[2018-07-15] VITALS: BP 113/67
--- NOTE | 2018-07-15 01:10 | NUR ---
DR CARDONA ROUND AT BED SIDE. PATIENT'S MRCP IS NORMAL. PATIENT IS CLEAR TO DISCHARGE FROM GI STAND POINT
[2018-07-15 04:00] VITALS: BP 110/67
[2018-07-15] MEDS: PANTOPRAZOLE 40 MG 10ML VIAL IV SCH (05:43)
[2018-07-15 06:18] LABS: BASOPHILS % 0.5 % (0.0-1.0); EOSINOPHILS # (AUTO) 0.2 (0.0-0.4); EOSINOPHILS % 3.6 % (0.0-6.0); HEMOGLOBIN 13.1 g/dL (12.0-16.0); LYMPHOCYTES # (AUTO) 1.9 (1.0-3.2); LYMPHOCYTES % 33.4 % (18.0-39.1); MEAN CORPUSCULAR HEMOGLOBIN 28.5 pg (28-32); MEAN CORPUSCULAR HGB CONC 33.6 g/dL (31-35); MONOCYTES # (AUTO) 0.5 (0.2-0.8); MONOCYTES % 9.4 % (4.4-11.3); NEUTROPHILS % 52.8 % (38.7-80.0); PLATELET COUNT 262 x10e3/uL (140-360); RED BLOOD COUNT 4.59 x10e6/uL (3.6-5.1); RED CELL DISTRIBUTION WIDTH 13.2 % (11.7-14.4)
[2018-07-15 06:41] LABS: ALANINE AMINOTRANSFERASE 117 IU/L (0-55); ALBUMIN 3.6 g/dL (3.5-5.0); ALBUMIN/GLOBULIN RATIO 0.9 (0.8-2.0); ALKALINE PHOSPHATASE 206 IU/L (40-150); BLOOD UREA NITROGEN 11 mg/dL (7-26); BUN/CREATININE RATIO 13 (6-25); CALCIUM 9.2 mg/dL (8.4-10.2); CARBON DIOXIDE 28 mmol/L (22-29); CHLORIDE 101 mmol/L (98-107); CREATININE, SERUM 0.82 mg/dL (0.57-1.11); EST GLOMERULAR FILTRATION RATE > 60 ML/MIN (60-); GLUCOSE 75 mg/dL (74-118); SODIUM 136 mmol/L (136-145)
--- NOTE | 2018-07-15 07:29 | NUR ---
RECEIVED PATIENT AWAKE RESTING IN BED. NO SIGNS OF DISTRESS. BED LOW, WHEELS LOCKED, SIDE RAILS X2. CALL LIGHT IN REACH. WILL CONTINUE TO MONITOR PATIENT.
[2018-07-15] MEDS: AMLODIPINE BESYLATE 5 MG TAB PO SCH (07:55)
[2018-07-15 08:00] VITALS: BP 109/63
[2018-07-15 09:30] VITALS: BP 109/63
--- NOTE | 2018-07-15 10:10 | NUR ---
PATIENT A/O X3, EVEN RESPIRATIONS ON RA. LUNG SOUNDS CLEAR TO AUSCULTATION. BOWEL SOUNDS ACTIVE, SKIN INTACT, NO EDEMA. NO PAIN OR DISCOMFORT AT THIS TIME. RIGHT AC 18 GAUGE IV INTACT/PATENT. PATIENT AMBULATES TO TOILET. VITAL SIGNS STABLE, CALL LIGHT IN REACH WILL CONTINUE TO MONITOR.
--- NOTE | 2018-07-15 10:30 | NUR ---
NOTIFIED DR. CANTU REGARDING POTASSIUM 3.0 NEW ORDER FOR 60 MEQ POTASSIUM PO X1.
[2018-07-15] MEDS ORDERED: POTASSIUM CHLORIDE 20 MEQ TAB CR PO STA (10:37)
[2018-07-15] MEDS ORDERED: ONDANSETRON HCL 4 MG ORAL DISINTEGRATING TAB PO PRN (11:00)
[2018-07-15] MEDS ORDERED: PANTOPRAZOLE SO40 MG PO (11:25)
[2018-07-15] MEDS ORDERED: CARAFATE1 GM/10 ML PO (11:27)
--- NOTE | 2018-07-15 11:35 | NUR ---
REMOVED PATIENTS IV. CATHETER TIP INTACT AND PRESSURE DRESSING APPLIED.
--- NOTE | 2018-07-15 11:56 | NUR ---
PATIENT DISCHARGED FROM FACILITY. PATIENT GATHERED ALL PERSONAL BELONGINGS, DISCHARGE INSTRUCTIONS, FOLLOW UP INFORMATION AND PRESCRIPTIONS. LEFT UNIT IN WHEELCHAIR AND WENT HOME VIA PRIVATE AUTO. NO SIGNS OF DISTRESS WHEN LEAVING FACILITY.
[2018-07-15 12:09] VITALS: BP 121/73
--- NOTE | 2018-07-16 10:55 | Discharge Summary ---
FINAL DISCHARGE DIAGNOSES: 1. Abdominal pain, status post EGD that showed gastritis and esophagitis. 2. Nausea and vomiting, resolved. 3. Dehydration, resolved. 4. Elevated transaminases, resolved. CONSULTANTS: GI. VITAL SIGNS: Temperature is 97.5, pulse 71, respiratory rate 16, blood pressure 109/63, pulse ox 97% on room air. LAB FINDINGS: Show white count 5.7, hemoglobin 13, hematocrit 39, and platelets of 263. Chemistry; sodium 133, potassium is 3, but replaced with 60 mEq p.o. x1 prior to being discharged, chloride 101, bicarb 28, anion gap of 10, BUN is 11, creatinine is 0.82, glucose 75, calcium 9.2. Total bilirubin is 0.5, AST 46, ALT 117, alkaline phosphatase 206, albumin is 3.6. MRCP was found to be normal. Liver ultrasound is normal. HOSPITAL COURSE: This is a 47-year-old female, who came into the ED with complaints of epigastric abdominal pain, nausea, and vomiting. GI was consulted. The patient underwent EGD on 07/12/2018 that showed evidence of a distal esophagitis with gastritis with biopsies taken. GI recommended Protonix and Carafate. The patient was on a clear liquid, advanced to solid foods, which she tolerated well. MRCP was negative. The patient did have elevated transaminases, but downtrending upon discharge. No further workup was needed by GI and cleared the patient for discharge home. The patient will be discharged on oral Carafate and Protonix and follow up with GI in 2 weeks' time. On the day of discharge, vital signs stable, labs being stable. The patient is seen and evaluated, examined thoroughly on the day of discharge. No other complaints. The patient verbalized understanding and agrees with plan of care to follow up accordingly as an outpatient with primary care physician in 1 week and GI in 2 weeks' time. MEDICATIONS: See med reconciliation form. DISPOSITION: Home. CONDITION: Stable. DIET: Heart healthy. In the event of any worsening symptoms, the patient has come back to the ED for further evaluation. Discharge summary took greater than 35 minutes. MD GANESH Miles/[facility] /[id number]
== END 2018-07-15 12:01 | disposition home or self-care (01) ==
LOC: MED/SURG 19:47 → INTOOBSV 19:47
PROVIDERS: ADMIT Internal Medicine; ATTEND Internal Medicine
DX: K29.70 Gastritis, unspecified, without bleeding (principal); E86.0 Dehydration; R74.0 Nonspecific elevation of levels of transaminase and lactic acid dehydrogenase [LDH]; K20.9 Esophagitis, unspecified; Z90.49 Acquired absence of other specified parts of digestive tract; I10 Essential (primary) hypertension; R94.5 Abnormal results of liver function studies
CPT/HCPCS: 36415 ×5; 43239; 74183; 76705; 80048; 80053 ×3; 83690; 84484 ×2; 85025 ×4; 88305; 88312; C9113 ×3; G0378 ×5; J2250; J2704; J2765; J7030 ×4

== ENCOUNTER → 2018-10-04 | Outpatient (CLI) | payer OTHER ==
[~2018-10-04] MED LIST changes: +CARAFATE1 GM/10 ML PO; +PANTOPRAZOLE SO40 MG PO
--- NOTE | 2018-10-08 09:29 | Diagnostic Imaging Report ---
#[id number] - MGSCRBIL #BILATERAL DIGITAL SCREENING MAMMOGRAM WITH CAD: 10/04/2018 CLINICAL: Routine screening. Comparison is made to exams dated: 01/13/2016 mammogram and 03/30/2017 mammogram - [facility]. Current study contains 6 films. The tissue of both breasts is heterogeneously dense. This may lower the sensitivity of mammography. Current study was also evaluated with a Computer Aided Detection (CAD) system. Benign appearing calcifications are noted bilaterally. There is a benign node in the right breast. No significant masses, calcifications, or other findings are seen in either breast. IMPRESSION: BENIGN There is no mammographic evidence of malignancy. A 1 year screening mammogram is recommended. The patient will be notified by letter of the results. BLANK BUNCH M.D. ct/penrad:10/04/2018 18:03:20 Computing Tutor: Sharon CELESTE(Alma Delia)(Aditi), [facility] letter sent: Normal Exam Mammogram BI-RADS: 2 Benign
== END ==
LOC: MAMMO 09:23
PROVIDERS: ATTEND Internal Medicine
DX: Z12.31 Encounter for screening mammogram for malignant neoplasm of breast (principal)
CPT/HCPCS: 77067